=== PATIENT | female | born 1975 | race Caucasian/White ===

== ENCOUNTER 2016-11-15 12:57 | Emergency (ER) | payer MEDICAID ==
--- NOTE | 2016-11-15 14:03 | ER Document Report ---
ED Medical Screen (RME) - General Chief Complaint: Abdominal Pain Stated Complaint: POST OP PAIN WEAKNESS TRAVEL OUTSIDE OF THE [place] IN LAST 30 DAYS: No - HPI Notes: 11/15/16 14:02 Patient with lap band removal at the end of October now having bleeding and discharge at the incision site lab and was removed at [place]. Patient states she woke woken in a pool of blood. Incision is examined dressing is saturated with blood however no active bleeding at this time no blood expressed - Related Data Allergies/Adverse Reactions: No Known Allergies Allergy (Verified 01/04/16 16:17) Past Medical History Renal/ Medical History: Denies: Hx Peritoneal Dialysis Psychiatric Medical History: Reports: Hx Depression Past Surgical History: Reports: Hx Abdominal Surgery, Hx Section, Hx Gastric Bypass Surgery - LAP-BAND - Immunizations Immunizations up to date: Yes Hx Diphtheria, Pertussis, Tetanus Vaccination: Yes Review of Systems - Review of Systems Gastrointestinal: Other - Postop wound bleeding Physical Exam - Vital signs Vitals: Temp Pulse Resp BP Pulse Ox 98.1 F 105 H 17 121/88 H 99 11/15/16 13:06 11/15/16 13:06 11/15/16 13:06 11/15/16 13:06 11/15/16 13:06 - Cardiovascular Rhythm: Regular Heart sounds: Normal auscultation Course - Vital Signs Vital signs: Temp Pulse Resp BP Pulse Ox 98.1 F 105 H 17 121/88 H 99 11/15/16 13:06 11/15/16 13:06 11/15/16 13:06 11/15/16 13:06 11/15/16 13:06
[2016-11-15 14:33] LABS: ABSOLUTE BASOPHILS # (AUTO) 0.1 10^3/uL (0.0-0.2); ABSOLUTE EOSINOPHILS # (AUTO) 0.9 10^3/uL (0.0-0.6); ABSOLUTE LYMPHOCYTES (AUTO) 1.8 10^3/uL (0.5-4.7); ABSOLUTE MONOCYTES (AUTO) 0.5 10^3/uL (0.1-1.4); ABSOLUTE NEUT (AUTO) 5.8 10^3/uL (1.7-8.2); EOSINOPHILS % (AUTO) 9.9 % (0-6); HEMATOCRIT 41.1 % (36.0-47.0); HEMOGLOBIN 13.6 g/dL (12.0-15.5); HGB HCT DIFFERENCE -0.3; LYMPHOCYTES % (AUTO) 19.8 % (13-45); MEAN CORPUSCULAR HEMOGLOBIN 25.4 pg (27.0-33.4); MEAN CORPUSCULAR VOLUME 77 fl (80-97); MONOCYTES % (AUTO) 5.7 % (3-13); RED BLOOD COUNT 5.34 10^6/uL (3.72-5.28); RED CELL DISTRIBUTION WIDTH 14.3 % (11.5-14.0); SEGMENTED NEUTROPHILS % (AUTO) 63.6 % (42-78); WHITE BLOOD COUNT 9.1 10^3/uL (4.0-10.5)
[2016-11-15 14:38] LABS: PARTIAL THROMBOPLASTIN TIME 28.4 SEC (23.5-35.8); PROTHROMBIN TIME 12.7 SEC (11.4-15.4)
[2016-11-15 14:52] LABS: ALANINE AMINOTRANSFERASE 24 U/L (9-52); ALBUMIN 4.4 g/dL (3.5-5.0); ALKALINE PHOSPHATASE 81 U/L (38-126); ANION GAP 12 (5-19); ASPARTATE AMINO TRANSFERASE 20 U/L (14-36); BILIRUBIN,DIRECT 0.2 mg/dL (0.0-0.4); BILIRUBIN,TOTAL 0.5 mg/dL (0.2-1.3); BLOOD UREA NITROGEN 15 mg/dL (7-20); CALCIUM 9.7 mg/dL (8.4-10.2); CARBON DIOXIDE 28 mmol/L (22-30); CHLORIDE 102 mmol/L (98-107); GLUCOSE 96 mg/dL (75-110); LIPASE 385.1 U/L (23-300); POTASSIUM 3.9 mmol/L (3.6-5.0); SODIUM 141.9 mmol/L (137-145); TOTAL PROTEIN 7.5 g/dL (6.3-8.2)
[2016-11-15] MEDS ORDERED: MORPHINE SULFATE 10 MG/ML INJ IV ONE (15:53)
[2016-11-15] MEDS ORDERED: ONDANSETRON HCL INJ/PF 4 MG/2 ML SDV IV ONE (15:54)
--- NOTE | 2016-11-15 16:08 | ER Document Report ---
ED General - General Chief Complaint: Abdominal Pain Stated Complaint: POST OP PAIN WEAKNESS Mode of Arrival: Ambulatory Information source: Patient Notes: This is a 41-year-old female who presents to the ER with concern for postop pain and bleeding. She is postop day #11 status post lap band reversal done at [facility]. She states that she began having increased abdominal discomfort yesterday , and today awoke "in a pool of blood" with oozing from her midline incision site. No fevers, chills. No vomiting. Only taking bites of food now and then since discharge home on November 10. Has surgical follow up appointment scheduled November 19. She states she was only discharged with 2 days of pain medication and has nothing to take for her post op pain. TRAVEL OUTSIDE OF THE [place] IN LAST 30 DAYS: No - Related Data Allergies/Adverse Reactions: No Known Allergies Allergy (Verified 01/04/16 16:17) Past Medical History - General Information source: Patient, [facility] Records - Social History Smoking Status: Current Every Day Smoker Frequency of alcohol use: None Drug Abuse: None Family History: Reviewed & Not Pertinent Patient has suicidal ideation: No Patient has homicidal ideation: No Renal/ Medical History: Denies: Hx Peritoneal Dialysis Musculoskeltal Medical History: Reports Hx Fibromyalgia Psychiatric Medical History: Reports: Hx Anxiety, Hx Depression Past Surgical History: Reports: Hx Abdominal Surgery, Hx Adenoidectomy, Hx Section, Hx Gastric Bypass Surgery - LAP-BAND, Hx Tonsillectomy - Immunizations Immunizations up to date: Yes Hx Diphtheria, Pertussis, Tetanus Vaccination: Yes Review of Systems - Review of Systems Notes: REVIEW OF SYSTEMS: CONSTITUTIONAL : Denies fever, chills, or sweats. EENT: Denies eye, ear, throat, or mouth pain or symptoms. Denies nasal or sinus congestion. CARDIOVASCULAR: Denies chest pain. RESPIRATORY: Denies cough, cold, or chest congestion. Denies shortness of breath, difficulty breathing, or wheezing. GASTROINTESTINAL: As per history of present illness GENITOURINARY: Denies difficulty urinating, painful urination MUSCULOSKELETAL: Denies neck or back pain or joint pain or swelling. SKIN: Denies rash or skin lesions. HEMATOLOGIC : Denies easy bruising or bleeding. LYMPHATIC: Denies swollen, enlarged glands. NEUROLOGICAL: Denies altered mental status or loss of consciousness. Denies headache. PSYCHIATRIC: Denies anxiety or stress or depression. ALL OTHER SYSTEMS REVIEWED AND NEGATIVE. Physical Exam - Vital signs Vitals: Temp Pulse Resp BP Pulse Ox 98.1 F 105 H 17 121/88 H 99 11/15/16 13:06 11/15/16 13:06 11/15/16 13:06 11/15/16 13:06 11/15/16 13:06 - Notes Notes: PHYSICAL EXAMINATION: GENERAL: Well-appearing, obese female, pleasant and conversant and in mild distress secondary to anxiety/worry. HEAD: Atraumatic, normocephalic. EYES: Pupils equal round and reactive to light, extraocular movements intact, sclera anicteric, conjunctiva are normal. ENT: nares patent, oropharynx clear without exudates. Moist mucous membranes. NECK: Normal range of motion, supple without lymphadenopathy LUNGS: Breath sounds clear to auscultation bilaterally and equal. No wheezes rales or rhonchi. HEART: Regular rate and rhythm without murmurs ABDOMEN: Soft, nondistended, active bowel sounds. Left anterior abdominal wall incision with serosanguinous drainage on the dressing, soaked. Dressing removed. No active bleeding noted. Incision intact except for extreme medial edge with less than 1mm mild dehiscence. No drainage expressed. No surrounding erythema or induration. Pt with mild ttp over the area, no generalized ttp and no guarding/rebound/rigidiy. No peritonitis. EXTREMITIES: Normal range of motion NEUROLOGICAL: Cranial nerves grossly intact. No gross focal motor or sensory deficits appreciated PSYCH: Normal mood, somewhat anxious affect Course - Re-evaluation Re-evalutation: 11/15/16 19:11 I discussed the case with surgery at [facility]. He states that this presentation and CT finding is very common for seroma at the trochar site. With no reported fevers, no peritonitis, no leukocytosis... he recommends opening the seroma and packing the site and she can follow up at [facility] tomorrow. I discussed with our online communications specialist surgeon, Dr. Powell, who did evaluate the patient in the emergency department and recommends that the patient follow up with [facility] tomorrow and does not recommend opening the wound at this time. 11/15/16 21:12 Again discussed with [facility]. He recommends follow up in surgery clinic tomorrow, and he is ok with no drainage of the seroma tonight, as pt is afebrile , no peritonitis, and no leukocytosis. Discussed this plan with the patient. She is very comfortable with following up at [facility] tomorrow as discussed. Strict return precautions discussed. - Vital Signs Vital signs: Temp Pulse Resp BP Pulse Ox 98.6 F 84 14 118/80 97 11/15/16 22:51 11/15/16 22:51 11/15/16 22:51 11/15/16 22:51 11/15/16 22:51 - Laboratory Result Diagrams: 11/15/16 14:10 11/15/16 14:10 Laboratory results interpreted by me: 11/15/16 11/15/16 14:10 14:10 RBC 5.34 H MCV 77 L MCH 25.4 L RDW 14.3 H Eosinophils % 9.9 H Absolute Eosinophils 0.9 H Lipase 385.1 H Discharge - Discharge Clinical Impression: Post-operative pain, Seroma complicating procedure Condition: Stable Disposition: HOME, SELF-CARE Additional Instructions: Call [facility] in the morning to be given an appointment time for tomorrow. If you have difficulty reaching the clinic, please call the [facility] stamping press operator at [phone] and ask for the bariatric surgeon online communications specialist. Return to the ER for fever greater than 100.4 or worsening symptoms/concerns. Prescriptions: Oxycodone HCl/Acetaminophen [Percocet 5-325 mg Tablet] 1 tab PO Q6H PRN #15 tab PRN Reason: For Pain Promethazine HCl [Phenergan 25 mg Tablet] 25 mg PO Q8H PRN #12 tablet PRN Reason: For Nausea/Vomiting Referrals: BEE CANO MD [Primary Care Provider] - Follow up as needed
[2016-11-15] MEDS ORDERED: HYDROMORPHONE HCL INJ/PF 2 MG/ML AMPULE IV ONE ×3 (16:37→21:58)
[2016-11-15] MEDS ORDERED: PIPERACILLIN/TAZOBACTAM 3.375 GM VIAL IV ONE (18:07)
[2016-11-15] MEDS ORDERED: PROMETHAZINE HCL INJ 25 MG/1 ML VIAL IV ONE ×2 (18:19→21:23)
[2016-11-15] MEDS ORDERED: PROMETHAZINE HCL INJ 25 MG/1 ML VIAL ONE ×2 (19:04→21:41)
[2016-11-15] MEDS ORDERED: HYDROCODONE/ACETAMINOPHEN 5-325 MG 6 TAB/DSPK PO PRN (21:22)
[2016-11-15 22:53] VITALS: BP 118/80
--- NOTE | 2016-11-15 22:53 | HX & PHYSICAL/TRANSFER SUMM E ---
History and Physical/Transfer Summary NAME: MUSA JOHNSON : 1975 AGE: 41Y ADMITTED: 11/15/2016 TRANSFERRED: 11/15/2016 REASON FOR CONSULTATION: Patient with fluid collection on the left anterior abdominal wall post lap band removal. HISTORY OF PRESENT ILLNESS: This is a 41-year-old female who had a lap band removed at [facility] 11 days ago. Yesterday she complained of abdominal pain and drainage from the left anterior wall incision site. She had a CT scan of the abdomen in the ER which showed a 2.7 x 6.2 fluid collection on the left anterior abdominal wall. PAST MEDICAL HISTORY: History of lap band placement. ALLERGIES: No known allergies. SOCIAL HISTORY: Unremarkable. PAST SURGICAL HISTORY: 1. Abdominal surgery. 2. History of section. 3. History of lap band surgery and removal. PHYSICAL EXAM: GENERAL: Well-developed, slightly obese 41-year-old female, alert and oriented, complaining of abdominal pain at the left upper quadrant area. VITAL SIGNS: She is afebrile with a heart rate of 105. Blood pressure 121/88. Pulse ox of 99% room air. LUNGS: Clear. HEART: Slightly tachycardic. ABDOMEN: Soft with tenderness at the left upper quadrant area. This is right at the incision site. There is no drainage at this time. No evidence of inflammation. EXTREMITIES: No edema. LABORATORY DATA: White count is normal at 9.1. INR 0.93. Hemoglobin 13.6. PLAN: Since patient does not look infected at this time; it just appears to be a regular seroma. Patient can be seen at [facility] tomorrow without drainage of this at this time. DICTATING PHYSICIAN: MERYL NDIAYE M.D. [id number] PHY#: [id number] ID: [id number] JOB#: [id number] ACCT: [id number] cc:MERYL NDIAYE M.D. >
== END 2016-11-15 22:51 | disposition home or self-care (01) ==
LOC: ER 12:57
DX: K91.872 Postprocedural seroma of a digestive system organ or structure following a digestive system procedure (principal); G89.18 Other acute postprocedural pain; R10.9 Unspecified abdominal pain; F17.200 Nicotine dependence, unspecified, uncomplicated
CPT/HCPCS: 96376; 99284; 96375; 96365; 86900; 86901; 36415; 86850; 83690; 85025; 85610; 85730; 80053; 83605; 74177; J1170; J2550; J2405; J2543

== ENCOUNTER → 2017-05-13 | Outpatient (CLI) | payer MEDICAID ==
--- NOTE | 2017-05-13 15:32 | RADIOLOGY REPORT (SQ) ---
EXAM DESCRIPTION: NM 3 PHASE BONE SCAN COMPLETED DATE/TIME: 05/13/2017 3:18 pm REASON FOR STUDY: PAIN IN LEFT FOOT M79.672 PAIN IN LEFT FOOT COMPARISON: X-ray of the left foot from outside facility dated 04/20/2017. RADIONUCLIDE AND DOSE: 21.9 millicuries Tc99m HDP. The route of agent administration: Intravenous. ADDITIONAL DRUGS AND DOSES: None. TECHNIQUE: Following injection of the radiopharmaceutical, serial blood flow images acquired. Equil ibrium blood pool images then acquired. Routine delayed images at 3 hour acquired of the areas of cl inical concern with additional focused images as needed. AREA OF INTEREST: Left foot. LIMITATIONS: None. FINDINGS: VASCULAR FLOW IMAGES: Asymmetric increased activity in the right ankle. BLOOD POOL IMAGES: Asymmetric increased activity in the right ankle. BONES: Focal areas of activity in the right ankle. There are also areas of activity in the right mid foot and calcaneus. There is also increased activity in the left calcaneus. KIDNEYS: Symmetric excretion without obstruction. OTHER: No other significant finding. IMPRESSION: 1. INCREASED ACTIVITY IN THE LEFT CALCANEUS ON DELAYED IMAGES. THIS COULD INDICATE AN OCCULT FRACTUR E. 2. SEVERAL AREAS OF ACTIVITY IN THE RIGHT ANKLE ON ALL 3 PHASES WELL THE RIGHT CALCANEUS. YOLY MMEND CORRELATION WITH CLINICAL HISTORY AND X-RAY OF THE RIGHT ANKLE AND FOOT. COMMENT: Quality measure 147: Current bone scan is compared with any available plain radiographs, p rior bone scans, and CT/MRI. TECHNICAL DOCUMENTATION: JOB ID: [id number] [employer]- All Rights Reserved
== END ==
LOC: RAD 11:35
PROVIDERS: ATTEND Family Medicine
DX: M79.672 Pain in left foot (principal)
CPT/HCPCS: 78315; A9561; Q9969